=== PATIENT | female | born 1990 | race Caucasian/White ===

== ENCOUNTER 2017-11-19 20:42 | Emergency (ER) | payer OTHER ==
[2017-11-19 20:49] VITALS: BP 105/61; PULSE 94; RESP 18; TEMP 97.7; O2SAT 94
[2017-11-19] MEDS ORDERED: IBUPROFEN 600 MG TAB PO ONE (20:55)
--- NOTE | 2017-11-19 21:21 | EDPHY ---
General Time Seen by Provider: 11/19/17 20:55 Narrative: CHIEF COMPLAINT: Ankle and foot pain HISTORY OF PRESENT ILLNESS: Patient presents with complaints of right ankle pain. She says she was playing around with her children when she got her shoe caught on the carpet. She describes an inversion injury, and her spouse witness this. She felt a sudden onset of severe pain in the right ankle. Radiates up and down into the proximal kuo and midfoot. There is no bony tenderness of the knee or mid foot or heel. She has severe pain on both sides of the right ankle. No injury elsewhere. Difficulty bearing weight due to the pain. No numbness but she does have some paresthesia of the right midfoot. No injury elsewhere. No other associated complaints or modifying factors. ESTABLISHED ORTHOPEDIST: None REVIEW OF SYSTEMS: Ten systems reviewed and are negative unless otherwise noted in the HPI PAST MEDICAL HISTORY: Uncomplicated medical history PAST SURGICAL HISTORY: No recent surgeries FAMILY HISTORY: Noncontributory EXAMINATION General Appearance: Alert, no distress Cardiovascular: Symmetric DP and PT pulses 2+. Neurological: A&O, light sensation to the anterior kuo and dorsum of the feet are symmetric. No foot drop on the right. Normal proprioception of the right great toe Skin: Warm and dry, no rash no petechiae or purpura Extremities: Tenderness out of proportion to palpation of the right ankle both medial and lateral malleoli. No crepitus or deformity. There is edema about the lateral malleolus on the right. There is no midfoot tenderness. No tenderness of the right calcaneus with firm palpation. Range of motion limited to the right ankle due to pain. No tenderness of the right proximal fibula. Psychiatric: Mood and affect normal DIFFERENTIAL DIAGNOSES: Including but not limited to sprain, strain, fracture, dislocation, subluxation MDM: 8:55 p.m. Acute right ankle inversion with at least a sprain injury. She is neuro intact no bony tenderness of the calcaneus or proximal fibula. I have ordered x-ray of the ankle. I have also ordered ibuprofen.she is in no acute distress. 9:35 p.m. X-ray as read by me, reveals comminuted right fibular fracture approximately 1/ 3 distal portion of the fibula. There is also displacement of the talus in respect to the distal fibula and tibia. Given the unusual location of this and her now complaining or proximal fibular pain I have ordered full tib-fib series. I have also re-evaluated ordered Percocet for pain. Her DP pulses remains symmetric. 9:50 p.m. Tib-fib series has been performed and there is no injury to the proximal fibula. 10:00 p.m. Case discussed with Dr. Castrejon. He has reviewed the x-ray. He recommends posterior splint with stirrup. Recommends crutches and nonweightbearing status. Patient will need surgical intervention next week. She does not need emergent surgical intervention at this time. We have adhere to these recommendations. 10:10 p.m. Patient re-evaluated. She is currently having her splint placed. She remains neuro intact with symmetric DP pulses. We discussed ice and elevation. We discussed strict nonweightbearing. We discussed ice and elevation. We discussed Percocet and she will be sent home with a small prepack of this. We discussed the need to contact the orthopedist on Wednesday morning for definitive care next week. We also discussed ED precautions. She is comfortable this plan she will be discharged home stable condition. SUPERVISION: This patient was independently evaluated without direct involvement of or examination by the attending physician. ED Precautions: Worsening pain. Erythema, edema, cyanosis, pallor, paresthesia or anesthesia. - Diagnostics Imaging Results: Imaging Impressions Ankle X-Ray 11/19/17 20:52 Impression: 1. Complex fracture distal shaft of the right fibula with lateral displacement of the distal fibula along with talus and forefoot laterally by about 5 mm with respect to the distal tibia. 2. Flattening of Boehler's angle associated with the calcaneus on the lateral view without definitive fracture line identified. Clinical correlation and follow-up suggested. - History Smoking Status: Never smoked - Objective Vital Signs: Initial Vital Signs Temperature (C) 97.7 F 11/19/17 20:45 Heart Rate 94 11/19/17 20:45 Respiratory Rate 18 11/19/17 20:45 Blood Pressure 105/61 11/19/17 20:45 O2 Sat (%) 94 11/19/17 20:45 O2 Delivery Mode Room Air Allergies/Adverse Reactions: No Known Allergies Allergy (Unverified 11/19/17 20:49) Home Medications: Medication Instructions Recorded oxyCODONE HCL/ACETAMINOPHEN 1 each PO Q4-6PRN PRN #15 tablet 11/19/17 [Percocet 5-325 mg Tablet] Medications Given: Discontinued Medications Ibuprofen (Motrin) 600 mg PO EDNOW ONE Stop: 11/19/17 20:56 Last Admin: 11/19/17 20:59 Dose: 600 mg Oxycodone/Acetaminophen (Percocet 5/325) 2 tab PO EDNOW ONE Stop: 11/19/17 21:39 Last Admin: 11/19/17 21:41 Dose: 2 tab Departure - Departure Disposition: Home, Routine, Self-Care Clinical Impression: Comminuted fracture of shaft of fibula Qualifiers: Encounter type: initial encounter Fracture type: closed Fracture alignment: displaced Laterality: right Qualified Code(s): S82.451A - Displaced comminuted fracture of shaft of right fibula, initial encounter for closed fracture Syndesmotic disruption of right ankle Qualifiers: Encounter type: initial encounter Qualified Code(s): S93.431A - Sprain of tibiofibular ligament of right ankle, initial encounter Condition: Good Instructions: Oxycodone/Acetaminophen (By mouth), Ankle Fracture (ED), Leg Fracture (ED), ORIF of a Leg Fracture (DC) Additional Instructions: 1. Ice and elevate often 2. Percocet as prescribed as needed 3. Keep your splint in place at all times. you are non weight-bearing completely at all times 4. Contact the on-call orthopedist Dr. Castrejon. The information is on your paperwork. You need to call him Wednesday morning for an appointment 5. ED precautions as discussed Referrals: Luca Castrejon MD [Medical Doctor] - As per Instructions Stand Alone Forms: Work Excuse Prescriptions: oxyCODONE HCL/ACETAMINOPHEN [Percocet 5-325 mg Tablet] 1 each PO Q4-6PRN PRN # 15 tablet PRN Reason: Pain, Breakthrough
[2017-11-19] MEDS ORDERED: OXYCODONE/APAP 5/325 TAB PO ONE (21:38)
[2017-11-19] MEDS ORDERED: OXYCODONE/APAP 5/325MG PREPACK#4 BTL TAKEHOME ONE (21:39)
== END 2017-11-19 22:35 | disposition home or self-care (01) ==
DX: S82.451A Displaced comminuted fracture of shaft of right fibula, initial encounter for closed fracture (principal); S93.431A Sprain of tibiofibular ligament of right ankle, initial encounter; W22.8XXA Striking against or struck by other objects, initial encounter; Y99.8 Other external cause status; Y93.89 Activity, other specified

== ENCOUNTER 2017-12-01 10:09 | Day surgery (SDC) | payer OTHER ==
--- NOTE | 2017-11-30 23:09 | GHP ---
[f rep st] PREOP HISTORY AND PHYSICAL DATE OF ADMISSION: 12/01/2017 ADMITTING DIAGNOSIS: Displaced fibula fracture, right ankle. HISTORY OF PRESENT ILLNESS: The patient is a 27-year-old female, who was playing with her kids on evening of November 19, 2017, and had an inversion injury and sustained a distal fibula fracture and a nkle mortise injury. She was evaluated at [facility], where x-rays were obtained. She was placed into a splint and referred to our office for followup and seen there, and the decision ma de to proceed with operative fixation of the fibular fracture with syndesmotic screw placement. PRIOR MEDICAL HISTORY: None. SURGICAL HISTORY: None. MEDICATIONS: None. ALLERGIES: No known drug allergies. REVIEW OF SYSTEMS: No shortness of breath. No chest pain. Otherwise 10-point review of systems is negative. PHYSICAL EXAM: GENERAL: Healthy-appearing, 27-year-old female, alert and oriented x3. HEENT: Norm ocephalic, atraumatic. Extraocular muscles intact. NECK: Supple. There is no lymphadenopathy. No JVD. CHEST: Clear to auscultation. CARDIOVASCULAR: Regular rate and rhythm. ABDOMEN: Soft, non tender, nondistended. EXTREMITIES: Right ankle, she is in a posterior splint, has some swelling in through her toes. Sensation on the dorsum and plantar aspect of her foot is good. She is moving her toes well. Brisk capillary refill to all her toes. IMAGING: X-rays from [facility], dated 11/19/2017, are reviewed. She has a distal fib ular fracture with ankle mortise widening. Radiologist made a note of some flattening of Bohler's an gle, though I do not see a definitive fracture line. ASSESSMENT: Distal fibular fracture with syndesmotic widening. PLAN: We discussed operative versus nonoperative treatments. Given the syndesmotic widening, I woul d recommend proceeding with an open reduction and internal fixation of the fibula with syndesmotic sc rew placement. This will necessitate removal of the screw at the 6-10 week point postoperatively. S he will be nonweightbearing during this first 6-week period. Risks and benefits including infection, blood clots, need for additional surgery, were all discussed. She understands these risks and wishe s to proceed. Preoperative paperwork was completed, and we will plan on surgery next Wednesday at [facility]. Continue the splint survey technologist. May use ibuprofen and she was given a pres cription for Percocet for pain at the hospital. /[id number]/MODL
[2017-12-01] MEDS ORDERED: ceFAZolin 2 GM/SWFI 2 GM/20 ML SYR IVP ONE (10:29)
[2017-12-01] MEDS ORDERED: LR 1,000 ML IV ONE (10:30)
[2017-12-01 10:50] VITALS: PULSE 80
--- NOTE | 2017-12-01 11:04 | PDHPUP ---
History & Physical Update H&P update statement: This history and physical update is based on an assessment of the patient which was completed after admission or registration (within 24 hours), but prior to the surgery/procedure. H&P update: H&P reviewed & patient examined, no change in patient's condition since H&P completed
[2017-12-01] MEDS ORDERED: BUPIVACAINE/EPI 0.5% 30 ML SDV ONE (11:12)
[2017-12-01] MEDS ORDERED: POLYMYXIN B SULFATE 500,000 UNIT/10 ML SYR IRR ONE (11:12)
[2017-12-01] MEDS ORDERED: BACITRACIN 50,000 UNITS/10 ML SYR IRR ONE (11:12)
--- NOTE | 2017-12-01 11:42 | PDANEPAE ---
ANE Past Medical History - Cardiovascular History Hx Hypertension: No Hx Arrhythmias: No Hx Chest Pain: No Hx Coronary Artery / Peripheral Vascular Disease: No Hx CHF / Valvular Disease: No Hx Palpitations: No - Pulmonary History Hx COPD: No Hx Asthma/Reactive Airway Disease: No Hx Recent Upper Respiratory Infection: No Hx Oxygen in Use at Home: No Hx Sleep Apnea: No Sleep Apnea Screening Result - Last Documented: Negative - Neurologic History Hx Cerebrovascular Accident: No Hx Seizures: No Hx Dementia: No - Endocrine History Hx Diabetes: No Endocrine History Comment: took thyroid Rx x 3mos - then stopped. - Renal History Hx Renal Disorders: No - Liver History Hx Hepatic Disorders: No - Neurological & Psychiatric Hx Hx Neurological and Psychiatric Disorders: No - Cancer History Hx Cancer: No - Congenital Disorder History Hx Congenital Disorders: No - GI History Hx Gastrointestinal Disorders: No - Other Health History Other Health History: sustained R fibula fx-playing w/kids at home- food got caught - Chronic Pain History Chronic Pain: No - Surgical History Prior Surgeries: L bunionectomy 2005. shweta ki 2009 EZ Review of Systems Review of Systems: - Exercise capacity METS (RN): 4 METS ANE Patient History - Allergies Allergies/Adverse Reactions: oxycodone Allergy (Verified 11/30/17 14:00) Other-Enter Comments - Home Medications Home Medications: HYDROmorphone 2 mg 11/30/17 [Last Taken 12/01/17 01:23] - NPO status NPO Since - Liquids (Date): 12/01/17 NPO Since - Liquids (Time): 01:23 NPO Since - Solids (Date): 11/30/17 NPO Since - Solids (Time): 22:15 - Smoking Hx Smoking Status: Never smoked ANE Labs/Vital Signs - Vital Signs Blood Pressure: 118/66 Heart Rate: 80 Respiratory Rate: 14 O2 Sat (%): 96 Height: 165.1 cm Weight: 138.799 kg ANE Physical Exam - Airway Neck exam: FROM Mallampati Score: Class 1 Mouth exam: normal dental/mouth exam - Pulmonary Pulmonary: no respiratory distress, no rales or rhonchi, clear to auscultation - Cardiovascular Cardiovascular: regular rate and rhythym, no murmur, rub, or gallop - ASA Status ASA Status: II ANE Anesthesia Plan Anesthesia Plan: GA w LMA Regional Anesthesia: popliteal SNB
[2017-12-01] MEDS ORDERED: MIDAZOLAM 2 MG/2 ML VIAL ONE (11:45)
[2017-12-01] MEDS ORDERED: fentaNYL 100 MCG/2 ML INJ ONE ×3 (11:45→13:44)
[2017-12-01] MEDS ORDERED: PROPOFOL/EMULSION 500 MG/50 ML BOTTLE IV ONE (11:45)
[2017-12-01] MEDS ORDERED: KETOROLAC 30 MG/1 ML SDV ONE (12:23)
[2017-12-01] MEDS ORDERED: RANITIDINE 50 MG/2 ML VIAL ONE (12:23)
[2017-12-01] MEDS ORDERED: ONDANSETRON 4 MG/2 ML VIAL ONE (12:23)
[2017-12-01] MEDS ORDERED: METOCLOPRAMIDE 10 MG/2 ML VIAL ONE (12:23)
[2017-12-01] MEDS ORDERED: LIDOCAINE 2% 5 ML SDV ONE (12:23)
[2017-12-01] MEDS ORDERED: ROPIVACAINE HCL 150 MG/30 ML INJ ONE (12:23)
[2017-12-01] MEDS ORDERED: PROMETHAZINE HCL 25 MG/ML INJ IVP PRN (12:30)
[2017-12-01] MEDS ORDERED: DEXAMETHASONE 4 MG/ML VIAL IVP PRN (12:30)
[2017-12-01] MEDS ORDERED: HYDROCODONE/APAP 5/325 TAB PO PRN (12:30)
[2017-12-01] MEDS ORDERED: LR 500 ML IV PRN (12:30)
[2017-12-01] MEDS ORDERED: METOCLOPRAMIDE 10 MG/2 ML VIAL IVP PRN (12:30)
[2017-12-01] MEDS ORDERED: NALOXONE HCL 0.4 MG/ML INJ IVP PRN (12:30)
[2017-12-01] MEDS ORDERED: ONDANSETRON 4 MG/2 ML VIAL IVP PRN (12:30)
[2017-12-01] MEDS ORDERED: ALBUTEROL 3 ML DEYVIAL IH PRN (12:30)
[2017-12-01] MEDS ORDERED: ACETAMINOPHEN 500 MG TAB PO PRN (12:30)
[2017-12-01] MEDS ORDERED: PROPOFOL 200 MG/20 ML VIAL ONE (12:40)
[2017-12-01] MEDS: fentaNYL 100 MCG/2 ML INJ IVP PRN ×3 (13:45→14:07)
--- NOTE | 2017-12-01 13:50 | POSTOPPROG ---
Post Op Note Date of Operation: 12/01/17 Surgeon: Luca Castrejon Anesthesiologist: Nahum Anesthesia: GET(General Endotracheal) Pre-op Diagnosis: displaced fibula fx/syndesmosis injury Post-op Diagnosis: same Procedure: ORIF fibula/syndesmotic screw placement Inf/Abcess present in the surg proc area at time of surgery?: No EBL: 50-100 Complications: none
[2017-12-01] MEDS ORDERED: HYDROCODONE/APAP 5/325 TAB ONE (14:06)
[2017-12-01 14:17] VITALS: RESP 16
--- NOTE | 2017-12-01 15:33 | GOP ---
[f rep st] OPERATIVE REPORT DATE OF OPERATION: 12/01/2017 SURGEON: Luca Castrejon MD ANESTHESIA: Popliteal block with general. ANESTHESIOLOGIST: Yuly Sidhu MD PREOPERATIVE DIAGNOSIS: Displaced right fibular fracture with syndesmotic injury. POSTOPERATIVE DIAGNOSIS: Displaced right fibular fracture with syndesmotic injury. PROCEDURE PERFORMED: Open reduction and internal fixation, fibula fracture with syndesmotic screw pl acement. FINDINGS: ESTIMATED BLOOD LOSS: 50 mL. DESCRIPTION OF PROCEDURE: After appropriate informed consent was obtained, patient was taken to the operating room and placed supine on the operating table. Time-out was performed. Patient was identi fied, correct site was identified, matched with the radiographs in the room. She received 2 g of Anc ef preoperatively. Following a popliteal block, general endotracheal tube anesthesia was administere d. Right lower extremity was prepped and draped in the usual sterile fashion. I exsanguinated the l imb, inflated the tourniquet to 250 mmHg. Total tourniquet time was 50 minutes. I made a standard l ateral incision over the fibula centered over the fracture. Soft tissues were carefully dissected. Fracture was easily identified. It was in 3 pieces with 1 butterfly fragment. I was able to reduce that, hold it in place with a tenaculum clamp, and place 1 lag screw in the distal part. I was then able to reduce that distal piece to the proximal piece holding it in place while seating a lateral 10 hole one-third tubular plate, which bridged the fracture nicely and gave me 1 hole distally for synd esmotic screw placement. I then placed a series of proximal distal screws reducing the fracture nice ly. Looking at the syndesmosis, it was wide on stress views. Using a tenaculum clamp on the medial malleolus and on the plate, I was able to reduce the syndesmosis and place 1 syndesmotic screw from l ateral to medial with good purchase. Wound was irrigated. The deep layers were closed with 0 Vicryl , superficial layers closed with 2-0 Vicryl, skin was closed with cecy. I instilled 20 mL of 0.5% Marcaine plain around the incision. Sterile dressing and a posterior splint with the foot in neutra l dorsiflexion were applied. Patient was awakened from anesthesia, taken to the recovery room in sat isfactory condition. There were no immediate intraoperative complications. TOTAL TOURNIQUET TIME: 50 minutes at 250 mmHg. IMPLANTS USED: Synthes one-third tubular plate. COMPLICATIONS: None. DRAINS: None. HISTORY: The patient is a 27-year-old female, who was playing with her kids, had a twisting injury, sustained a fibular fracture with widened syndesmosis. She was evaluated in the office and decision was made to proceed with a fibular fixation and syndesmotic screw placement. /[id number]/MODL
[2017-12-01 15:48] VITALS: BP 148/83; O2SAT 91
[2017-12-01 15:51] VITALS: TEMP 98.2
--- NOTE | 2017-12-01 20:48 | POSTANESTH ---
Post Anesthetic Evaluation Cardiovascular Status: Normal, Stable Respiratory Status: Normal, Stable Level of Consciousness/Mental Status: Mildly Sleepy, Arousable Pain Control: Adequate, Prn Tx Ordered Nausea/Vomiting Control: Adequate, Prn Tx Ordered Complications Possibly Related to Anesthesia: None Noted
== END 2017-12-01 15:30 | disposition home or self-care (01) ==
LOC: FSGY 10:09
PROVIDERS: ATTEND Orthopaedic Surgery
PROC: 0QSJ04Z Reposition Right Fibula with Internal Fixation Device, Open Approach (ICD-10-PCS; principal; 2017-12-01 12:15)
DX: S82.451A Displaced comminuted fracture of shaft of right fibula, initial encounter for closed fracture (principal); S93.431A Sprain of tibiofibular ligament of right ankle, initial encounter; W22.8XXA Striking against or struck by other objects, initial encounter; Y92.009 Unspecified place in unspecified non-institutional (private) residence as the place of occurrence of the external cause; Y93.83 Activity, rough housing and horseplay
CPT/HCPCS: C1713; J0690; J1885; J2250; J2405; J2704; J2765; J2780; J2795; J3010

== ENCOUNTER 2017-12-02 21:09 | Emergency (ER) | payer OTHER ==
--- NOTE | 2017-12-02 21:34 | EDPHY ---
H & P Time Seen by Provider: 12/02/17 21:25 HPI/ROS: CHIEF COMPLAINT: Right ankle pain HISTORY OF PRESENT ILLNESS: Patient is a 37-year-old female who presents emergency department with right ankle pain. The patient had an ankle fracture which was repaired by Dr. Castrejon yesterday. She states she has been doing well till 6:30 p.m. this evening. She developed significantly more significant right lateral ankle pain. It is worse with movement. She describes it as a stabbing pain. She has had no fevers or chills. No nausea or vomiting. REVIEW OF SYSTEMS: My complete review of systems is negative except as mentioned in the HPI. Past Medical/Surgical History: Negative Past surgical history: Right ankle surgery Social history: The patient does not smoke Smoking Status: Never smoked Physical Exam: Vitals noted. Afebrile General Appearance: [Alert and moderate distress]. Head: [Pupils equal. Normal]. Respiratory: [No respiratory distress]. Cardiac: [regular rate and rhythm]. Extremities: [The patient's right leg is splinted and dressed. Edvin wrap and wrap were removed]. Skin: No rashes or lesions. Neuro: [Alert. Normal mood and affect]. Constitutional: Initial Vital Signs Temperature (C) 36.8 C 12/02/17 21:12 Heart Rate 92 12/02/17 21:12 Respiratory Rate 18 12/02/17 21:12 Blood Pressure 112/79 12/02/17 21:12 O2 Sat (%) 94 12/02/17 21:12 O2 Delivery Mode Nasal Cannula O2 (L/minute) 2 Allergies/Adverse Reactions: oxycodone Allergy (Verified 11/30/17 14:00) Other-Enter Comments Home Medications: Medication Instructions Recorded HYDROmorphone 2 mg 11/30/17 Medical Decision Making ED Course/Re-evaluation: In the emergency department I discussed possible etiologies with the patient. I answered all her questions. An IV was placed. Patient was given 150 mcg of fentanyl IV and Zofran 4 mg IV I took down the patient's splint. Patient's pain did improve after the splint was removed. She was noted to have a hematoma at the base of her surgical incision site on the right. The dressing was clean, dry and intact. There is no surrounding erythema or warmth. The compartments did not seem tense. The foot was mildly swollen. Patient's wound was dressed. A new Ortho Glass splint was placed. This was arranged to take pressure off of the hematoma site. Patient was neurovascularly intact post splint placement. Patient was given Dilaudi 1 mg IVP. Patient takes Dilaudid 2 mg orally at home. I rechecked the patient while here. She was doing better. She was able to ambulate with crutches. She was given warnings prior to leaving. She will return with worsening symptoms. Differential Diagnosis: My differential includes but is not limited to swelling, compartment syndrome, infection, abscess, cellulitis, hardware disruption - Data Points Medications Given: Discontinued Medications Fentanyl (Sublimaze) 150 mcg IVP EDNOW ONE Stop: 12/02/17 21:40 Last Admin: 12/02/17 21:43 Dose: 150 mcg Hydromorphone HCl (Dilaudid) 1 mg IVP EDNOW ONE Stop: 12/02/17 22:38 Last Admin: 12/02/17 22:38 Dose: 1 mg Ondansetron HCl (Zofran) 4 mg IVP EDNOW ONE Stop: 12/02/17 21:40 Last Admin: 12/02/17 21:43 Dose: 4 mg Departure - Departure Disposition: Home, Routine, Self-Care Clinical Impression: Ankle pain, right Qualifiers: Chronicity: acute Qualified Code(s): M25.571 - Pain in right ankle and joints of right foot Condition: Good Instructions: Swollen Joint (ED) Additional Instructions: Keep your right foot elevated above your heart. Your not to bear weight. Return with increasing pain, fever or any other concerns. Referrals: Luca Castrejon MD [Medical Doctor] - 2-3 days without fail
[2017-12-02] MEDS ORDERED: fentaNYL 100 MCG/2 ML INJ ONE (21:37)
[2017-12-02] MEDS ORDERED: ONDANSETRON 4 MG/2 ML VIAL ONE (21:37)
[2017-12-02] MEDS ORDERED: fentaNYL 100 MCG/2 ML INJ IVP ONE (21:39)
[2017-12-02] MEDS ORDERED: ONDANSETRON 4 MG/2 ML VIAL IVP ONE (21:39)
[2017-12-02] MEDS ORDERED: HYDROmorphONE/DILAUDID 2 MG/ML INJ ONE (22:28)
[2017-12-02] MEDS ORDERED: HYDROmorphONE/DILAUDID 2 MG/ML INJ IVP ONE (22:37)
[2017-12-02 23:54] VITALS: BP 102/53
== END 2017-12-02 23:47 | disposition home or self-care (01) ==
DX: G89.18 Other acute postprocedural pain (principal); M25.571 Pain in right ankle and joints of right foot
CPT/HCPCS: 96374; J1170; J2405; J3010

== ENCOUNTER 2018-01-17 05:46 | Day surgery (SDC) | payer OTHER ==
--- NOTE | 2018-01-16 05:16 | GHP ---
[f rep st] PREOP HISTORY AND PHYSICAL DATE OF ADMISSION: 01/17/2018 DATE OF PLANNED PROCEDURE: 01/18/2018. PREOPERATIVE DIAGNOSES: Painful retained hardware, right ankle. HISTORY OF PRESENT ILLNESS: The patient is a 27-year-old female, who underwent open reduction, inter nal fixation of her right bimalleolar ankle fracture a little over 6 weeks ago. She has a syndesmoti c screw placed for a wide mortise and this is ready to be removed and progressive weightbearing start ed. PAST MEDICAL HISTORY: Prior medical history is unremarkable. PAST SURGICAL HISTORY: Prior surgical history none, other than open reduction, internal fixation of this ankle on December 01, 2017. MEDICATIONS: Percocet. ALLERGIES: None. SOCIAL HISTORY: She works at [employer]. Does not smoke. Occasional alcohol use. REVIEW OF SYSTEMS: No shortness of breath. No chest pain. Otherwise, review of systems is unremark able. PHYSICAL EXAM: GENERAL: Healthy-appearing, 27-year-old female. VITAL SIGNS: She is 5 feet 5 inche s tall, weighs 106 pounds. Blood pressure is 108/69, heart rate 70, respiratory rate 14 on room air. GENERAL: Alert and oriented x3. HEENT: Normocephalic, atraumatic. Extraocular muscles intact. NECK: Supple. There is no lymphadenopathy. No JVD. CHEST: Clear to auscultation. CARDIOVASCULAR : Regular rate and rhythm. ABDOMEN: Soft, nontender, nondistended. EXTREMITY EXAM: Well-healed i ncisions from previous surgery. Some mild tenderness over the syndesmotic screw head she has almost 5 degrees of dorsiflexion and 50 degrees of plantar flexion. Calf is soft. 2+ dorsalis pedis, poste rior tibial pulses. X-rays show fracture to be healing well. Mortise is closed down. ASSESSMENT: Status post open reduction, internal fixation, bimalleolar ankle fracture right 12/02/19 18, with retained syndesmotic screw. PLAN: Long discussion with Gina. I recommend removing the screw because once she starts to weightb ear this will break and then she will have broken hardware within the ankle. She is in agreement wit h this plan. [facility]. Risks and benefits of the surgery including, ankle pain, widening of the ankle mortise requiring repeat surgery were discus sed. She understands these risks and wished to proceed. Preoperative paperwork was completed. /[id number]/MODL
[2018-01-17] MEDS ORDERED: ceFAZolin 2 GM/SWFI 2 GM/20 ML SYR IVP ONE (05:52)
[2018-01-17] MEDS ORDERED: LR 1,000 ML IV ONE (05:53)
[2018-01-17] MEDS ORDERED: EPINEPHrine 1 MG/ML INJ ONE (06:25)
[2018-01-17] MEDS ORDERED: BUPIVACAINE 0.25% 30 ML SDV ONE (06:25)
[2018-01-17] MEDS ORDERED: POLYMYXIN B SULFATE 500,000 UNIT/10 ML SYR IRR ONE (06:26)
[2018-01-17] MEDS ORDERED: BACITRACIN 50,000 UNITS/10 ML SYR IRR ONE (06:26)
[2018-01-17] MEDS ORDERED: BUPIVACAINE 0.5% 30 ML SDV ONE (06:40)
[2018-01-17] MEDS ORDERED: ALBUTEROL 3 ML DEYVIAL IH PRN (06:57)
[2018-01-17] MEDS ORDERED: fentaNYL 100 MCG/2 ML INJ IVP PRN (06:57)
[2018-01-17] MEDS ORDERED: MIDAZOLAM 2 MG/2 ML VIAL IVP ONE (06:57)
[2018-01-17] MEDS ORDERED: ONDANSETRON 4 MG/2 ML VIAL IVP PRN (06:57)
[2018-01-17] MEDS ORDERED: HYDROmorphONE/DILAUDID 2 MG/ML INJ IVP PRN (06:57)
[2018-01-17] MEDS ORDERED: NALOXONE HCL 0.4 MG/ML INJ IVP PRN (06:57)
[2018-01-17] MEDS ORDERED: HYDROCODONE/APAP 5/325 TAB PO PRN (06:57)
--- NOTE | 2018-01-17 06:59 | PDANEPAE ---
ANE History of Present Illness Syndesmosis Screw Removal ANE Past Medical History - Cardiovascular History Hx Hypertension: No Hx Arrhythmias: No Hx Chest Pain: No Hx Coronary Artery / Peripheral Vascular Disease: No Hx CHF / Valvular Disease: No Hx Palpitations: No - Pulmonary History Hx COPD: No Hx Asthma/Reactive Airway Disease: No Hx Recent Upper Respiratory Infection: No Hx Oxygen in Use at Home: No Hx Sleep Apnea: No Sleep Apnea Screening Result - Last Documented: Negative - Neurologic History Hx Cerebrovascular Accident: No Hx Seizures: No Hx Dementia: No - Endocrine History Hx Diabetes: No Endocrine History Comment: took thyroid Rx x 3mos - then stopped. - Renal History Hx Renal Disorders: No - Liver History Hx Hepatic Disorders: No - Neurological & Psychiatric Hx Hx Neurological and Psychiatric Disorders: No - Cancer History Hx Cancer: No - Congenital Disorder History Hx Congenital Disorders: No - GI History Hx Gastrointestinal Disorders: No - Other Health History Other Health History: SCREW R ANKLE X 6 WKS;. sustained R fibula fx-playing w/ kids at home- foot got caught 11-19-17 - Chronic Pain History Chronic Pain: No - Surgical History Prior Surgeries: ORIF R FIBULA/ANKLE 12-01-17;. L bunionectomy 2004. shweta emerson 2010 ANE Review of Systems Review of Systems: - Exercise capacity Exercise capacity: >=4 METS METS (RN): 4 METS ANE Patient History - Allergies Allergies/Adverse Reactions: oxycodone Allergy (Verified 01/11/18 11:14) Other-Enter Comments - Home Medications Home Medications: NK [No Known Home Meds] 01/11/18 [Last Taken Unknown] - NPO status NPO Since - Liquids (Date): 01/16/18 NPO Since - Liquids (Time): 20:00 NPO Since - Solids (Date): 01/16/18 NPO Since - Solids (Time): 19:00 - Smoking Hx Smoking Status: Never smoked ANE Labs/Vital Signs - Vital Signs Blood Pressure: 104/66 Heart Rate: 80 Respiratory Rate: 16 O2 Sat (%): 96 Height: 165.1 cm Weight: 138.799 kg ANE Physical Exam - Airway Neck exam: FROM Mallampati Score: Class 2 Mouth exam: normal dental/mouth exam - Pulmonary Pulmonary: no respiratory distress - Cardiovascular Cardiovascular: regular rate and rhythym - ASA Status ASA Status: II ANE Anesthesia Plan Anesthesia Plan: GA w LMA
[2018-01-17] MEDS ORDERED: fentaNYL 100 MCG/2 ML INJ ONE (07:02)
[2018-01-17] MEDS ORDERED: PROPOFOL 200 MG/20 ML VIAL ONE (07:02)
[2018-01-17] MEDS ORDERED: MIDAZOLAM 2 MG/2 ML VIAL ONE (07:04)
[2018-01-17] MEDS ORDERED: ONDANSETRON 4 MG/2 ML VIAL ONE (07:20)
[2018-01-17] MEDS ORDERED: DEXAMETHASONE 4 MG/ML VIAL ONE (07:21)
[2018-01-17] MEDS ORDERED: RANITIDINE 50 MG/2 ML VIAL ONE (07:33)
--- NOTE | 2018-01-17 07:48 | POSTANESTH ---
Post Anesthetic Evaluation Cardiovascular Status: Normal, Stable Respiratory Status: Normal, Stable Level of Consciousness/Mental Status: Can Participate in Eval, Mildly Sleepy, Arousable Pain Control: Adequate, Prn Tx Ordered Nausea/Vomiting Control: Adequate, Prn Tx Ordered
--- NOTE | 2018-01-17 07:49 | POSTOPPROG ---
Post Op Note Date of Operation: 01/17/18 Surgeon: Luca Castrejon Anesthesiologist: tadeo Anesthesia: GET(General Endotracheal) Pre-op Diagnosis: retained hardware RT ankle Post-op Diagnosis: same Procedure: hardware removal RT ankle Inf/Abcess present in the surg proc area at time of surgery?: No Complications: none
[2018-01-17] MEDS ORDERED: HYDROCODONE/APAP 5/325 TAB ONE (08:48)
--- NOTE | 2018-01-17 08:57 | GOP ---
[f rep st] OPERATIVE REPORT DATE OF OPERATION: 01/17/2018 SURGEON: Luca Castrejon MD ANESTHESIA: General. ANESTHESIOLOGIST: Dr. Sarabia. PREOPERATIVE DIAGNOSIS: Retained syndesmotic screw, right ankle following open reduction, internal f ixation. POSTOPERATIVE DIAGNOSIS: Retained syndesmotic screw, right ankle following open reduction, internal fixation. PROCEDURE PERFORMED: Syndesmotic screw removal right ankle. FINDINGS: ESTIMATED BLOOD LOSS: Minimal. INDICATIONS: The patient is a young lady who underwent open reduction, internal fixation to right bi malleolar ankle fracture in early November. The fracture is healing nicely. She had syndesmotic screw removal, placed at the time surgery due to a wide ankle mortise. We are now ready to start weightbea ring so the decision was made to proceed with syndesmotic screw removal. DESCRIPTION OF PROCEDURE: After appropriate informed consent was obtained patient taken operating ro om, placed supine on the operating table. Time-out was performed. Patient was identified correct si te was identified, matched to the radiographs available in the room. She received 2 g of Ancef preop eratively. Following the induction of general endotracheal tube anesthesia, the right lower extremit y was prepped and draped in usual sterile fashion. I exsanguinated the limb, inflated the tourniquet to 250 mmHg. Total tourniquet time was 9 minutes. I made a small incision directly over the distal end of the plate. The screw was removed without difficulty. Wound was irrigated. Deep layers clos ed with 2-0 Vicryl. Skin was closed with interrupted 3-0 nylon sutures. I instilled 20 mL of 0.5% M arcaine with epinephrine around the incision. Soft sterile dressing was applied. Patient was awaken ed from anesthesia, taken to the recovery room in satisfactory condition. There were no immediate in traoperative complications. COMPLICATIONS: None. DRAINS: None. TOURNIQUET TIME: 9 minutes at 250 mmHg. /[id number]/MODL
[2018-01-17 09:28] VITALS: BP 120/78
== END 2018-01-17 09:37 | disposition home or self-care (01) ==
LOC: FSGY 05:46
PROVIDERS: ATTEND Orthopaedic Surgery
PROC: 0SPF04Z Removal of Internal Fixation Device from Right Ankle Joint, Open Approach (ICD-10-PCS; principal; 2018-01-17 07:15)
DX: T84.84XA Pain due to internal orthopedic prosthetic devices, implants and grafts, initial encounter (principal)
CPT/HCPCS: J0171; J0690; J1100; J2250; J2405; J2704; J2780; J3010